=== PATIENT | male | born 1970 | race Caucasian/White ===

== ENCOUNTER 2025-03-07 00:34 | Emergency (ER) | payer SELFPAY ==
[2025-03-07] MEDS ORDERED: LIDOCAINE 2% W/EPI 1:200,000 MPF 20 ML VIAL IM ONE (00:50)
[2025-03-07] MEDS ORDERED: TDAP (DIPHTH,PERTUSS(ACELL),TET VAC) 0.5 ML VIAL IMVAC ONE (00:51)
[2025-03-07] MEDS ORDERED: AMOX/K CLAV 875 MG TAB ONE (02:04)
[2025-03-07] MEDS ORDERED: HYDROCODONE/APAP 5/325 MG TAB ONE (02:04)
[2025-03-07] MEDS ORDERED: IBUPROFEN 400 MG TAB ONE (02:04)
--- NOTE | 2025-03-07 02:06 | ER ---
Nurse's Notes [facility] Name: Arley Johnson Age: 54 yrs Sex: Male : 1970 Arrival Date: 03/07/2025 Time: 00:34 Bed 3 Private MD: Diagnosis: Bitten by dog;Laceration without foreign body of right elbow, initial encounter Presentation: 03/07 00:41 Chief complaint: Patient states: I was at my parents house and got bit by their cattle jb4 dog on the right upper forearm. It took a chunk out of me. Coronavirus screen: At this time, the client does not indicate any symptoms associated with coronavirus-19. Ebola Screen: No symptoms or risks identified at this time. Initial Sepsis Screen: Does the patient meet any 2 criteria? No. Patient's initial sepsis screen is negative. Does the patient have a suspected source of infection? No. Patient's initial sepsis screen is negative. Risk Assessment: Do you want to hurt yourself or someone else? Patient reports no desire to harm self or others. Onset of symptoms was March 07, 2025. Transition of care: patient was not received from another setting of care. 00:41 Method Of Arrival: Ambulatory jb4 00:41 Acuity: LATRICE 3 jb4 Triage Assessment: 00:42 Bite description: bite sustained to palmar aspect of right forearm is full thickness, jb4 from animal, by a bat, animal information:. General: Appears in no apparent distress. uncomfortable, Behavior is cooperative, anxious. Pain: Complains of pain in palmar aspect of right forearm Pain does not radiate. Pain currently is 9 out of 10 on a pain scale. Neuro: Level of Consciousness is awake, alert, obeys commands, Oriented to person, place, time, situation. Cardiovascular: Patient's skin is warm and dry. Respiratory: Airway is patent Respiratory effort is even, unlabored, Respiratory pattern is regular, symmetrical. Derm: Skin is intact, Skin is pink, warm \T\ dry. Musculoskeletal: Circulation, motion, and sensation intact. Range of motion: intact in all extremities. 02:15 Bite description: animal information: vaccination(s) is unknown. bm8 Historical: - Allergies: 00:42 No Known Allergies; jb4 - PMHx: 00:42 None; jb4 - PSHx: 00:42 None; jb4 - Immunization history:: Adult Immunizations up to date, Last tetanus immunization: < 10 years ago. - Infectious Disease History:: Denies. - Social history:: Smoking status: Patient denies any tobacco usage or history of. Screenin:06 [facility] ED Fall Risk Assessment (Adult) History of falling in the last 3 months, bm8 including since admission No falls in past 3 months (0 pts) Confusion or Disorientation No (0 pts) Intoxicated or Sedated No (0 pts) Impaired Gait No (0 pts) Mobility Assist Device Used No (0 pt) Altered Elimination No (0 pt) Score/Fall Risk Level 0 - 2 = Low Risk Oriented to surroundings, Maintained a safe environment, Educated pt \T\ family on fall prevention, incl call for assistance when getting out of bed, Assessed \T\ reinforced patient's understanding of fall precautions, Hourly rounding (assess needs \T\ fall precautionary measures) done, Used ambulatory aids as needed (educated on \T\ assisted with), Used gait belt as appropriate. Abuse screen: Denies threats or abuse. Nutritional screening: No deficits noted. Tuberculosis screening: No symptoms or risk factors identified. Assessment: 01:06 General: Appears in no apparent distress. comfortable, Behavior is calm, cooperative, bm8 appropriate for age. Pain: Complains of pain in palmar aspect of right forearm Pain currently is 5 out of 10 on a pain scale. Derm: Skin laceration Wound noted palmar aspect of right forearm Wound is dog bite that tore through forearm muscle/. Reports pain that is 5 out of 10 on a pain scale. 02:12 Reassessment: Patient appears in no apparent distress at this time. Patient and/or bm8 family updated on plan of care and expected duration. Pain level reassessed. Patient is alert, oriented x 3, equal unlabored respirations, skin warm/dry/pink. after sutures wound was cleaned and dressed with xeroform, gauze and kerlix. Vital Signs: 00:41 BP 165 / 86; Pulse 104; Resp 16; Temp 97.7(O); Pulse Ox 100% on R/A; Weight 79.83 kg jb4 (R); Height 5 ft. 11 in. (R); Pain 9/10; 02:12 BP 138 / 78; Pulse 86; Resp 17; Temp 97.7; Pulse Ox 100% ; Pain 0/10; bm8 00:41 Body Mass Index 24.55 (79.83 kg, 180.34 cm) jb4 00:41 Pain Scale: Adult jb4 02:12 Pain Scale: Adult bm8 [place] Coma Score: 01:06 Eye Response: spontaneous(4). Motor Response: obeys commands(6). Verbal Response: bm8 oriented(5). Total: 15. 02:12 Eye Response: spontaneous(4). Motor Response: obeys commands(6). Verbal Response: bm8 oriented(5). Total: 15. ED Course: 00:35 Patient arrived in ED. jj6 00:35 Gerber Bunch PA is PHCP. cp 00:35 Uriel Nava MD is Attending Physician. cp 00:42 Triage completed. jb4 00:42 Arm band placed on right wrist. jb4 00:47 Ej Rangel, RN is Primary Nurse. bm8 01:06 Patient has correct armband on for positive identification. Bed in low position. Call bm8 light in reach. Side rails up X 1. Adult w/ patient. Provided Education on: after pt declined Tetanus vaccination, it was explained that he could from tetanus and he still stated he did not want. Client placed on continuous cardiac and pulse oximetry monitoring. NIBP monitoring applied. Pulse ox on. NIBP on. Door closed. Warm blanket given. Pillow given. Verbal reassurance given. 01:06 Patient maintains SpO2 saturation greater than 95% on room air. bm8 01:21 XRAY Elbow RIGHT 3 view In Process Unspecified. EDMS 01:50 Assist provider with laceration repair on palmar aspect of right forearm that was bm8 between 2.6 to 7.5 cm using sutures. Set up tray. Performed by Gerber PORTILLO Dressed with 4X4s, Kerlix, Patient tolerated well. 02:04 Galileo Kenyon MD is Referral Physician. cp 02:12 Patient did not have IV access during this emergency room visit. bm8 Administered Medications: 01:06 Not Given (Patient Refused): boostrix tdap0.5 ml IM once; as a single dose bm8 01:50 Drug: Lidocaine Infiltration (2 %) 20 ml 5 ml Infiltration once; to bedside with bm8 epinephrine {Note: by provider.} Volume: 5 ml; Route: Infiltration; Site: affected area; 02:14 Follow up: Response: No adverse reaction bm8 02:12 Drug: Amoxicillin-Clavulanate PO 875 mg PO once Route: PO; bm8 02:14 Follow up: Response: No adverse reaction bm8 02:12 Drug: Ibuprofen PO 800 mg PO once Route: PO; bm8 02:14 Follow up: Response: No adverse reaction bm8 02:12 Drug: HYDROcodone-acetaminophen PO 5 mg-325 mg 1 tabs PO once Route: PO; bm8 02:14 Follow up: Response: No adverse reaction bm8 Medication: 01:06 VIS not applicable for this client. bm8 Outcome: 02:05 Discharge ordered by MD. cp 02:12 Discharged to home ambulatory, bm8 02:12 Condition: stable 02:12 Discharge instructions given to patient, family, Instructed on discharge instructions, follow up and referral plans. no drinking with medication, no driving heavy equipment, medication usage, safety practices, Demonstrated understanding of instructions, follow-up care, medications, Prescriptions given X 3, 02:21 Patient left the ED. bm8 Signatures: Dispatcher [employer] EDMS Gerber Bunch PA PA cp Bryson, James, RN RN jb4 Angelica Woodj6 Ej Rangel, RN RN bm8 Corrections: (The following items were deleted from the chart) 01:50 01:50 Lidocaine Infiltration (2 %) 20 ml 5 ml Infiltration bm8 bm8 01:51 01:06 No provider procedures requiring assistance completed. bm8 bm8 02:15 02:12 Discharge instructions given to patient, family, Instructed on discharge bm8 instructions, follow up and referral plans. no drinking with medication, no driving heavy equipment, medication usage, safety practices, Demonstrated understanding of instructions, follow-up care, medications, Prescriptions given X 2, bm8
--- NOTE | 2025-03-07 02:06 | EDPHYS ---
Physician Documentation [facility] Name: Arley Johnson Age: 54 yrs Sex: Male : 1970 Arrival Date: 03/07/2025 Time: 00:34 Bed 3 Private MD: ED Physician Uriel Nava HPI: 03/07 00:45 This 54 yrs old Male presents to ER via Ambulatory with complaints of Dog Bite. cp 00:45 The patient was bitten on the lateral side of right elbow, by a dog, as a result of cp being attacked by the animal, at a relative's home. Onset: The symptoms/episode began/occurred just prior to arrival. Animal information: animal control contacted. Secondary to the bite the patient reports multiple lacerations, that are deep. Associated signs and symptoms: The patient has no apparent associated signs or symptoms. Historical: - Allergies: 00:42 No Known Allergies; jb4 - PMHx: 00:42 None; jb4 - PSHx: 00:42 None; jb4 - Immunization history:: Adult Immunizations up to date, Last tetanus immunization: < 10 years ago. - Infectious Disease History:: Denies. - Social history:: Smoking status: Patient denies any tobacco usage or history of. ROS: 00:50 MS/extremity: Positive for laceration, of the lateral side of right elbow, Negative for cp decreased range of motion, 00:50 Constitutional: Negative for body aches, chills, fever, poor PO intake, cp Exam: 00:55 Constitutional: The patient appears in no acute distress, alert, awake, non-toxic, well cp developed, well nourished, uncomfortable, 00:55 Head/Face: Normocephalic, atraumatic. cp 00:55 Eyes: Periorbital structures: appear normal, Conjunctiva: normal, no exudate, no injection, Lids and lashes: appear normal, bilaterally, 00:55 ENT: External ear(s): are unremarkable, Nose: is normal, Mouth: Lips: moist, Oral mucosa: moist, Posterior pharynx: Airway: no evidence of obstruction, patent, 00:55 Neck: ROM/movement: is normal, is supple, without pain, no range of motions limitations, 00:55 Chest/axilla: Inspection: normal, 00:55 Cardiovascular: Rate: normal, Pulses: Pulses are 2+ in right radial artery. 00:55 Respiratory: the patient does not display signs of respiratory distress, Respirations: normal, no use of accessory muscles, no retractions, labored breathing, is not present, Breath sounds: are clear throughout, no decreased breath sounds, 00:55 Abdomen/GI: Exam negative for discomfort, distension, guarding, Inspection: abdomen appears normal, 00:55 Back: pain, is absent, 00:55 Musculoskeletal/extremity: Extremities: noted in the right elbow: large laceration noted lateral side with mild bleeding, There is no evidence of joint deformity, bony deformity, exposed tendon, ROM: full active range of motion, in the right elbow, the right hand and right arm Sensation intact. 00:55 Neuro: Orientation: to person, place \T\ time. Mentation: is normal, Vital Signs: 00:41 BP 165 / 86; Pulse 104; Resp 16; Temp 97.7(O); Pulse Ox 100% on R/A; Weight 79.83 kg jb4 (R); Height 5 ft. 11 in. (R); Pain 9/10; 02:12 BP 138 / 78; Pulse 86; Resp 17; Temp 97.7; Pulse Ox 100% ; Pain 0/10; bm8 00:41 Body Mass Index 24.55 (79.83 kg, 180.34 cm) jb4 00:41 Pain Scale: Adult jb4 02:12 Pain Scale: Adult bm8 [place] Coma Score: 01:06 Eye Response: spontaneous(4). Motor Response: obeys commands(6). Verbal Response: bm8 oriented(5). Total: 15. 02:12 Eye Response: spontaneous(4). Motor Response: obeys commands(6). Verbal Response: bm8 oriented(5). Total: 15. Laceration: 01:57 Wound Repair of 5cm ( 2.0in ) subcutaneous laceration to lateral side of right elbow. cp Irregularly shaped.. Skin/tissue flap noted.. Distal neuro/vascular/tendon intact. Anesthesia: Wound infiltrated with 8 mls of 2% lidocaine. Wound prep: Moderate cleansing by me, Wound irrigation by me. Skin closed with 3 3-0 Prolene using loose closure. Dressed with Bacitracin, 4x4's. Patient tolerated well. MDM: 00:38 Medical Screening Exam initiated cp 02:05 Data reviewed: vital signs, nurses notes, radiologic studies, plain films. cp 02:05 Differential diagnosis: superficial laceration, tendon injury, vascular injury, rabies, cp cellulitis. I considered the following discharge prescriptions or medication management in the emergency department Medications were administered in the Emergency Department. See MAR. Independent interpretation of the following test(s) in the Emergency Department X-Ray: My interpretation is images of right elbow negative for fracture. Counseling: I had a detailed discussion with the patient and/or guardian regarding the historical points, exam findings, and any diagnostic results supporting the discharge/admit diagnosis, radiology results, the need for outpatient follow up, a general surgeon, to return to the emergency department if symptoms worsen or persist or if there are any questions or concerns that arise at home. Response to treatment: the patient's symptoms have markedly improved after treatment, and as a result, I will discharge patient. Special discussion: I discussed in detail with the patient the higher chance of wound infection based on his presenting history. 08 00:38 Order name: XRAY Elbow RIGHT 3 view cp 08/ 00:38 Order name: Dressing - Wound; Complete Time: 00:41 cp 08/ 00:38 Order name: Gloves, Sterile; Complete Time: 00:41 cp 08/ 00:38 Order name: Setup Suture Tray; Complete Time: 00:41 cp 08/ 01:57 Order name: Wound dressing; Complete Time: 02:12 cp Administered Medications: 01:06 Not Given (Patient Refused): boostrix tdap0.5 ml IM once; as a single dose bm8 01:50 Drug: Lidocaine Infiltration (2 %) 20 ml 5 ml Infiltration once; to bedside with bm8 epinephrine {Note: by provider.} Volume: 5 ml; Route: Infiltration; Site: affected area; 02:14 Follow up: Response: No adverse reaction bm8 02:12 Drug: Amoxicillin-Clavulanate PO 875 mg PO once Route: PO; bm8 02:14 Follow up: Response: No adverse reaction bm8 02:12 Drug: Ibuprofen PO 800 mg PO once Route: PO; bm8 02:14 Follow up: Response: No adverse reaction bm8 02:12 Drug: HYDROcodone-acetaminophen PO 5 mg-325 mg 1 tabs PO once Route: PO; bm8 02:14 Follow up: Response: No adverse reaction bm8 Disposition: 06:51 Co-signature as Attending Physician, Uriel Nava MD I reviewed the patient's care rn provided by the Advanced Practice Provider and agree with the diagnosis and treatment plan. 17:30 Chart complete. cp Disposition Summary: 03/07/25 02:05 Discharge Ordered Notes: Location: Home cp Problem: new cp Symptoms: have improved cp Condition: Stable cp Diagnosis - Bitten by dog cp - Laceration without foreign body of right elbow, initial encounter cp Followup: cp - With: Galileo Kenyon MD - When: 1 - 2 days - Reason: Wound Recheck Discharge Instructions: - Discharge Summary Sheet cp - Laceration Care, Adult cp - Animal Bite, Adult cp Forms: - Medication Reconciliation Form cp - Antibiotic Education cp - Prescription Opioid Use cp - Patient Portal Instructions cp - Leadership Thank You Letter cp Prescriptions: - Augmentin 875-125 mg Oral Tablet - take 1 tablet ORAL route every 12 hours for 10 days; 20 tablet; Refills: 0, cp Product Selection Permitted - Ibuprofen 800 mg Oral Tablet - take 1 tablet ORAL route every 8 hours As needed take with food; 30 tablet; cp Refills: 0, Product Selection Permitted - Tramadol 50 mg Oral Tablet - take 1 tablet ORAL route every 8 hours as needed; 12 tablet; Refills: 0, cp Product Selection Permitted Signatures: Dispatcher [employer] EDUriel Amador MD MD rn Page, Corey, PA PA cp Noman Jones, RN RN jb4 Ej Rangel RN RN bm8 Corrections: (The following items were deleted from the chart) 17:30 17:28 Data reviewed: vital signs, nurses notes, cp cp
[2025-03-07 02:36] VITALS: TEMP 98.7
[2025-03-07 02:41] VITALS: BP 111/61; O2SAT 95
--- NOTE | 2025-03-07 06:03 | RAD REPORT ---
EXAM: Elbow Right 3 View XR Right Elbow 3 Views 03/07/2025 at 1: 09 AM HISTORY: Animal bite COMPARISON: None TECHNIQUE: Right Elbow 3 Views FINDINGS: No fracture or dislocation. No significant sclerotic/lytic bone lesion. Joint spaces unremarkable. No radiopaque foreign body. Large defect located at posteromedial soft tissue region near right elbow. IMPRESSION: Large laceration located at posteromedial soft tissue region near right elbow. Electronically signed by: Juliano Alvarado MD 03/07/2025 02:07 AM CDT Due to temporary technical issues with the [employer] reporting system, reports are being serenity d by the in-house radiologist without review as a courtesy to ensure prompt reporting the interpreting radiologist is fully responsible for the content of the report. Transcribed Date/Time: 03/07/2025 6:02 AM
== END 2025-03-07 02:21 | disposition home or self-care (01) ==
LOC: ER 00:34
DX: S51.011A Laceration without foreign body of right elbow, initial encounter (principal); W54.0XXA Bitten by dog, initial encounter
CPT/HCPCS: 90715; 99284